=== PATIENT | female | born 1980 | race Caucasian/White ===

== ENCOUNTER → 2023-06-14 | Outpatient (REF) | payer BC, SELFPAY | LOC: DHSLP | PROVIDERS: ATTENDING PHYSICIAN Internal Medicine | DX: G47.30 Sleep apnea, unspecified (principal); R06.83 Snoring | CPT/HCPCS: 95800 ==

== ENCOUNTER → 2023-07-11 09:22 | Outpatient (REF) | payer BC, SELFPAY ==
[2023-07-11 10:42] LABS: % Basophils 0.7 % (0-2); % Eosinophils 1.4 % (0-6); % Lymphocytes 32.6 % (20.5-51.1); % Monocytes 5.3 % (1.7-9.3); Absolute Eosinophils 0.1 10^3/uL (0-0.7); Absolute Lymphocytes 1.4 10^3/uL (1.2-3.4); Absolute Monocytes 0.2 10^3/uL (0.1-0.6); Absolute Neutrophils 2.6 10^3/uL (1.4-6.5); Hematocrit 36.8 % (37.0-47.0); Hemoglobin 12.8 g/dL (12.0-16.0); Mean Corp Hgb Conc. 34.8 g/dL (33.0-37.0); Mean Corpuscular Hgb 30.5 pg (27.0-31.0); Mean Corpuscular Volume 87.6 fL (81.0-99.0); Mean Platelet Volume 9.6 fL (7.4-10.4); Nucleated Red Blood Cells % 0 %; Platelet Count 238 10^3/uL (130-400); Red Cell Dist. Width 12.4 % (11.5-14.5); White Blood Cell Count 4.3 10^3/uL (4.8-10.8)
[2023-07-11 11:17] LABS: ALT (SGPT) 14 U/L (0-35); AST (SGOT) 20 U/L (14-36); Albumin 4.2 g/dl (3.5-5.0); Alkaline Phosphatase 45 U/L (38-126); Blood Urea Nitrogen 15 mg/dl (7-17); Calcium 9.4 mg/dl (8.4-10.2); Carbon Dioxide 28 mmol/L (22-30); Chloride 106 mmol/L (98-107); Glucose 88 mg/dl (70-99); Potassium 4.3 mmol/L (3.5-5.1); Sodium 138 mmol/L (135-145); Total Bilirubin 0.5 mg/dl (0.2-1.3); Total Protein 6.6 g/dl (6.3-8.2); eGFR > 60.00
[2023-07-11 16:11] LABS: Vitamin D, 25-OH*** 26.6 ng/mL (30-80)
[2023-07-11 16:25] LABS: TSH Reflex To Free T4 0.75 uIU/ml (0.47-4.68)
[2023-07-11 17:01] LABS: Folate 17.8 ng/ml (2.76-20); Vitamin B12 738 pg/ml (239-931)
== END ==
LOC: REG 09:22
PROVIDERS: ATTENDING PHYSICIAN Internal Medicine
DX: R53.83 Other fatigue (principal); E55.9 Vitamin D deficiency, unspecified; F41.9 Anxiety disorder, unspecified; R41.89 Other symptoms and signs involving cognitive functions and awareness
CPT/HCPCS: 36415; 80053; 82306; 82607; 82746; 84443; 85025

== ENCOUNTER → 2023-11-30 08:59 | Outpatient (REF) | payer BC, SELFPAY ==
[2023-11-30 10:11] LABS: % Basophils 0.9 % (0-2); % Eosinophils 1.7 % (0-6); % Immature Granulocytes 0.2 % (0-0.5); % Lymphocytes 29.6 % (20.5-51.1); % Neutrophils 61.6 % (42.2-75.2); Absolute Basophils 0.1 10^3/uL (0-0.2); Absolute Eosinophils 0.1 10^3/uL (0-0.7); Absolute Lymphocytes 1.6 10^3/uL (1.2-3.4); Absolute Monocytes 0.3 10^3/uL (0.1-0.6); Absolute Neutrophils 3.3 10^3/uL (1.4-6.5); Hematocrit 36.6 % (37.0-47.0); Hemoglobin 12.8 g/dL (12.0-16.0); Mean Corpuscular Hgb 30.9 pg (27.0-31.0); Mean Corpuscular Volume 88.4 fL (81.0-99.0); Mean Platelet Volume 9.8 fL (7.4-10.4); Nucleated Red Blood Cells % 0 %; Platelet Count 284 10^3/uL (130-400); Red Blood Cell Count 4.14 10^6/uL (4.20-5.40); Red Cell Dist. Width 12.2 % (11.5-14.5); White Blood Cell Count 5.3 10^3/uL (4.8-10.8)
[2023-11-30 11:19] LABS: ALT (SGPT) 17 U/L (0-35); AST (SGOT) 18 U/L (14-36); Albumin 4.2 g/dl (3.5-5.0); Alkaline Phosphatase 47 U/L (38-126); Blood Urea Nitrogen 16 mg/dl (7-17); Calcium 9.1 mg/dl (8.4-10.2); Carbon Dioxide 26 mmol/L (22-30); Chloride 105 mmol/L (98-107); Glucose 82 mg/dl (70-99); HDL Cholesterol 45 mg/dl; LDL Cholesterol, Calculated 136 mg/dl; Potassium 4.1 mmol/L (3.5-5.1); Sodium 140 mmol/L (135-145); Total Bilirubin 0.7 mg/dl (0.2-1.3); Total Cholesterol 206 mg/dl (50-199); Total Protein 6.4 g/dl (6.3-8.2); Triglyceride 128 mg/dl (10-149); Very Low Density Lipoprotein 25 mg/dl (0-30); eGFR > 60.00
[2023-11-30 11:55] LABS: TSH Reflex To Free T4 1.37 uIU/ml (0.47-4.68)
[2023-12-02 09:51] LABS: Vitamin D 1,25 Dihydroxy 83.1 pg/mL (19.9-79.3)
== END ==
LOC: REG 08:59
PROVIDERS: ATTENDING PHYSICIAN Internal Medicine
DX: E55.9 Vitamin D deficiency, unspecified (principal); R53.83 Other fatigue; Z00.00 Encounter for general adult medical examination without abnormal findings
CPT/HCPCS: 36415; 80053; 80061; 82652; 84443; 85025

== ENCOUNTER → 2024-01-13 15:58 | Outpatient (REF) | payer BC, SELFPAY ==
[2024-01-13 17:49] LABS: Vitamin D, 25-OH*** 28.3 ng/mL (30-80)
== END ==
LOC: REG 15:58
PROVIDERS: ATTENDING PHYSICIAN Internal Medicine
DX: E55.9 Vitamin D deficiency, unspecified (principal)
CPT/HCPCS: 36415; 82306

== ENCOUNTER → 2024-03-05 12:33 | Outpatient (REF) | payer BC, SELFPAY | LOC: WDC 12:33 | PROVIDERS: ATTENDING PHYSICIAN Internal Medicine | DX: Z12.31 Encounter for screening mammogram for malignant neoplasm of breast (principal) | CPT/HCPCS: 77063; 77067 ==

== ENCOUNTER → 2024-06-04 12:40 | Outpatient (REF) | payer BC, SELFPAY ==
[2024-06-04 14:55] LABS: Vitamin D, 25-OH*** 24.1 ng/mL (30-80)
== END ==
LOC: REG 12:40
PROVIDERS: ATTENDING PHYSICIAN Internal Medicine
DX: E55.9 Vitamin D deficiency, unspecified (principal)
CPT/HCPCS: 36415; 82306

== ENCOUNTER → 2024-08-08 15:20 | Outpatient (REF) | payer BC, SELFPAY ==
[2024-08-16 05:56] LABS: HPV, High Risk Not Detected; HPV, High Risk Source Cervical
== END ==
LOC: CPAP 15:20
PROVIDERS: ATTENDING PHYSICIAN Obstetrics & Gynecology Gynecology
DX: Z01.419 Encounter for gynecological examination (general) (routine) without abnormal findings (principal)
CPT/HCPCS: 87624

== ENCOUNTER → 2024-08-28 11:17 | Outpatient (REF) | payer BC, SELFPAY ==
[2024-08-28 12:32] LABS: % Basophils 0.9 % (0-2); % Eosinophils 1.4 % (0-6); % Lymphocytes 37.5 % (20.5-51.1); % Monocytes 5.2 % (1.7-9.3); Absolute Eosinophils 0.1 10^3/uL (0-0.7); Absolute Lymphocytes 1.6 10^3/uL (1.2-3.4); Absolute Monocytes 0.2 10^3/uL (0.1-0.6); Absolute Neutrophils 2.4 10^3/uL (1.4-6.5); Hematocrit 37.4 % (37.0-47.0); Hemoglobin 12.8 g/dL (12.0-16.0); Mean Corp Hgb Conc. 34.2 g/dL (33.0-37.0); Mean Corpuscular Hgb 30.5 pg (27.0-31.0); Mean Platelet Volume 9.8 fL (7.4-10.4); Nucleated Red Blood Cells % 0 %; Platelet Count 251 10^3/uL (130-400); White Blood Cell Count 4.3 10^3/uL (4.8-10.8)
[2024-08-28 12:55] LABS: ALT (SGPT) 18 U/L (0-35); AST (SGOT) 17 U/L (14-36); Albumin 4.2 g/dl (3.5-5.0); Alkaline Phosphatase 39 U/L (38-126); Blood Urea Nitrogen 11 mg/dl (7-17); Calcium 9.5 mg/dl (8.4-10.2); Carbon Dioxide 27 mmol/L (22-30); Chloride 109 mmol/L (98-107); Glucose 85 mg/dl (70-99); HDL Cholesterol 47 mg/dl; LDL Cholesterol, Calculated 134 mg/dl; Potassium 4.4 mmol/L (3.5-5.1); Sodium 142 mmol/L (135-145); Total Bilirubin 0.6 mg/dl (0.2-1.3); Total Cholesterol 200 mg/dl (50-199); Total Protein 6.8 g/dl (6.3-8.2); Triglyceride 96 mg/dl (10-149); Very Low Density Lipoprotein 19 mg/dl (0-30); eGFR > 60.00
[2024-08-28 12:58] LABS: Vitamin D, 25-OH*** 35.1 ng/mL (30-80)
[2024-08-28 13:11] LABS: TSH Reflex To Free T4 1.29 uIU/ml (0.47-4.68)
== END ==
LOC: REG 11:17
PROVIDERS: ATTENDING PHYSICIAN Internal Medicine
DX: E55.9 Vitamin D deficiency, unspecified (principal); Z00.00 Encounter for general adult medical examination without abnormal findings
CPT/HCPCS: 36415; 80053; 80061; 82306; 84443; 85025

== ENCOUNTER → 2024-09-05 10:30 | Outpatient (REF) | payer BC, SELFPAY | LOC: CLAB 10:30 | PROVIDERS: ATTENDING PHYSICIAN Orthopaedic Surgery Hand Surgery | DX: M67.431 Ganglion, right wrist (principal) | CPT/HCPCS: 88304 ==

== ENCOUNTER → 2024-11-30 08:27 | Outpatient (REF) | payer BC, SELFPAY ==
[2024-11-30 09:43] LABS: Hematocrit 38.8 % (37.0-47.0); Hemoglobin 13.2 g/dL (12.0-16.0); Mean Corp Hgb Conc. 34.0 g/dL (33.0-37.0); Mean Corpuscular Volume 88.8 fL (81.0-99.0); Nucleated Red Blood Cells % 0 %; Platelet Count 237 10^3/uL (130-400); Red Cell Dist. Width 11.9 % (11.5-14.5)
[2024-11-30 13:45] LABS: ALT (SGPT) 15 U/L (0-35); AST (SGOT) 17 U/L (14-36); Albumin 4.3 g/dl (3.5-5.0); Alkaline Phosphatase 40 U/L (38-126); Blood Urea Nitrogen 14 mg/dl (7-17); Calcium 9.4 mg/dl (8.4-10.2); Carbon Dioxide 27 mmol/L (22-30); Chloride 108 mmol/L (98-107); Glucose 86 mg/dl (70-99); HDL Cholesterol 53 mg/dl; LDL Cholesterol, Calculated 132 mg/dl; Potassium 4.2 mmol/L (3.5-5.1); Sodium 139 mmol/L (135-145); Total Protein 6.8 g/dl (6.3-8.2); Very Low Density Lipoprotein 25 mg/dl (0-30); eGFR > 60.00
== END ==
LOC: REG 08:27
PROVIDERS: ATTENDING PHYSICIAN Internal Medicine Gastroenterology; FAMILY PHYSICIAN Internal Medicine
DX: Z00.00 Encounter for general adult medical examination without abnormal findings (principal); Z83.79 Family history of other diseases of the digestive system
CPT/HCPCS: 36415; 80053; 80061; 82784; 83516; 84443; 85025; 86231

== ENCOUNTER 2024-12-21 06:25 | Day surgery (SDC) | payer BC, SELFPAY | END 2024-12-21 14:53 | disposition home or self-care (01) | LOC: GI 06:25 | PROVIDERS: ATTENDING PHYSICIAN Internal Medicine Gastroenterology | DX: Z12.11 Encounter for screening for malignant neoplasm of colon (principal); R12 Heartburn; K22.89 Other specified disease of esophagus; D12.0 Benign neoplasm of cecum; D12.3 Benign neoplasm of transverse colon; K31.89 Other diseases of stomach and duodenum; D13.0 Benign neoplasm of esophagus; Z80.0 Family history of malignant neoplasm of digestive organs | CPT/HCPCS: 45385; 43239; 88305 ==